=== PATIENT | male | born 1950 | race Caucasian/White ===

== ENCOUNTER 2017-02-14 07:14 | Emergency (ER) | payer MEDICARE ==
[2017-02-14 07:46] LABS: BASOPHILS 0.1 % (0.0-2.0); HEMATOCRIT 42.4 % (42.0-54.0); LYMPHOCYTES 3.5 % (20.0-40.0); LYMPHOCYTES# 0.3 X 10^3uL (0.8-3.8); MEAN CELL VOLUME 97.1 fL (80.0-100.0); MEAN CORPUS. HGB CONCENTRATION 35.4 g/dL (32.0-36.0); MEAN CORPUSCULAR HEMOGLOBIN 34.4 pg (29.0-35.0); MEAN PLATELET VOLUME 6.8 fL (7.4-10.4); MONOCYTES 3.5 % (2.0-10.0); MONOCYTES# 0.3 X 10^3uL (0.2-1.0); NEUTROPHILS# 9.3 X 10^3uL (2.6-6.7); RED BLOOD COUNT 4.37 X 10^6uL (4.20-6.10); RED CELL DISTRIBUTION WIDTH 12.7 % (11.5-14.5); WHITE BLOOD COUNT 9.9 X 10^3uL (3.9-10.7)
[2017-02-14] MEDS ORDERED: ACETAMINOPHEN 325 MG TABLET PO ONE (07:58)
[2017-02-14] MEDS ORDERED: LEVOFLOXACIN/D5W 150 ML IV ONE (08:04)
[2017-02-14] MEDS ORDERED: PIPERACILLIN /TAZO 4.5 GM/10 ML VIAL IV ONE (08:05)
[2017-02-14] MEDS ORDERED: NORMAL SALINE MINI-BAG+ 100 ML IV ONE (08:05)
[2017-02-14 08:12] LABS: ALBUMIN 3.7 g/dL (3.5-5.0); CALCIUM 9.1 mg/dL (8.4-10.2); CREATININE 1.5 mg/dL (0.7-1.3); NEUTROPHILS 92.9 % (54.0-75.0); POTASSIUM 3.4 mmol/L (3.5-5.1); TOTAL PROTEIN 7.4 g/dL (6.3-8.2)
[2017-02-14 08:18] LABS: ARTERIAL BLOOD GAS HCO3 13.5 mmol/L (22-26); ARTERIAL BLOOD GAS PCO2 25.3 mmHg (35-45)
[2017-02-14] MEDS ORDERED: KETAMINE HCL 500 MG/10 ML VIAL ONE (08:51)
[2017-02-14] MEDS ORDERED: FENTANYL 100 MCG/2 ML VIAL ONE (09:08)
--- NOTE | 2017-02-14 09:12 | RADIOLOGY REPORT ---
HISTORY: Difficulty breathing. COMPARISON: None. TECHNIQUE: Portable AP chest. FINDINGS: There is consolidation in the right lower lung. There may be a small right pleural effusion. Left jahaira g clear. No evidence of pneumothoraces. Cardiac silhouette within normal limits. Mild atherosclerosi s aortic arch. Spondylosis lower thoracic spine. IMPRESSION: 1. Consolidation right lower lung compatible with pneumonia. Recommend 6 week follow-up to document resolution. 2. Possible small right pleural effusion. Final Electronic Signature: This report was electronically signed by Jesús Glass MD on 02/14/2017 9: 10 AM. adis /
[2017-02-14 09:24] LABS: ARTERIAL BLOOD GAS HCO3 19.9 mmol/L (22-26); ARTERIAL BLOOD GAS PCO2 59.3 mmHg (35-45)
--- NOTE | 2017-02-14 09:32 | ER NURSING DOCUMENTATION ---
Nurse's Notes [facility] Name:Jesús Nunez Age:66 yrs Sex:Male :1950 Arrival Date:02/14/2017 Time:07:14 BedTrauma-A Private MD:Marquis Horton Diagnosis:Respiratory Failure;Sepsis;Hypoxia;Pneumonia Bacterial Presentation: 02/14 07:14 Presenting complaint: Patient states: SOB, flu positive. Pale, diaphoretic, labored tg breathing, denies chest pain except with cough. Transition of care: patient was not received from another setting of care. 07:14 Method Of Arrival: Private Vehicle tg 07:36 Acuity: KRISTINE 1 tg Triage Assessment: 07:20 General: Appears ill, Behavior is anxious, cooperative. Pain: Denies pain. Neuro: Level tg of Consciousness is awake, alert. Cardiovascular: Heart tones S1 S2 present Reports Diaphoresis fatigue, shortness of breath Denies syncope, Rhythm is sinus tachycardia. Respiratory: Airway is patent Respiratory effort is labored, Respiratory pattern is tachypnea Breath sounds are coarse Reports shortness of breath cough that is labored breathing pain with cough Onset: The symptoms/episode began/occurred gradually, the patient has severe shortness of breath. Derm: Skin is diaphoretic, Skin is pale. Historical: - Allergies: No known drug Allergies; - Tetanus: unknown. - Ebola Screening: : Patient negative for fever greater than or equal to 101.5 degrees Fahrenheit, and additional compatible Ebola Virus Disease symptoms. Patient denies exposure to infectious person. Patient denies travel to an Ebola-affected area in the 21 days before illness onset. No symptoms or risks identified at this time. . - Social history: Smoking status: Patient states was never smoker of tobacco. - Immunization history: Pneumococcal vaccine status is unknown, Flu Vaccine < 1 year. Screenin:41 Infectious Disease Risk Unable to Obtain. Abuse screen: Denies threats or abuse. Denies tg injuries from another. Nutritional screening: No deficits noted. Assessment: 09:00 Reassessment: [employer] flight team in the room, transfering patient onto their tg monitoring equipment, asssuming patient care. . 09:00 Reassessment: Pt intubated and on EMS ventilator. Equal chest rise, breath sounds tg bilat. Pt is sedated and calm. . Vital Signs: 07:15 BP 160 / 99 (auto/); Pulse 188; Resp 50; Temp 99.3(O); Pulse Ox 82% on R/A; Weight tg 83.91 kg (R); Height 5 ft. 11 in. (180.34 cm) (R); Pain 2/10; 07:19 Pulse 160 MON; Resp 32; Pulse Ox 89% ; tg 08:31 BP 134 / 84 (auto/); tg 08:37 Pulse 170 MON; Resp 36; Pulse Ox 97% ; tg 08:45 BP 130 / 73 (auto/); tg 08:47 Pulse 138 MON; Resp 24; Pulse Ox 97% ; tg 08:52 BP 199 / 115 (auto/); tg 08:56 BP 184 / 97 (auto/); tg 08:57 Pulse 147 MON; Resp 23; Pulse Ox 94% ; tg 09:00 BP 166 / 89 (auto/); tg 09:02 Pulse 171 MON; Resp 22; Pulse Ox 91% ; tg 07:15 Body Mass Index 25.80 (83.91 kg, 180.34 cm) ED Course: 07:20 Notified ED Physician of patient's arrival and chief complaint. Dr. Villa notified. Arm tg band placed on. 07:20 engineering psychologist on. Pulse ox on. NIBP On - RN Monitoring Only. tg 07:25 EKG done. (by ED staff). Reviewed by Marco Villa MD. Oxygen Oxygen administration via tg nasal cannula @ 5L/min. 07:27 Patient arrived in ED. arc 07:27 Marquis Horton DO is Private Physician. arc 07:35 Marco Villa MD is Attending Physician. jm 07:36 Triage completed. tg 07:37 Port Xray Completed. pm1 07:39 Sanjeev Carlson, RN is Primary Nurse. tg 07:41 Inserted peripheral IV: 20 gauge in left forearm. tg 08:18 Inserted peripheral IV: 22 gauge in right hand Multiple missed IV attempts by EMS. tg 08:46 Valuables Remains with patient. tg 08:49 Assist Provider Assist provider with intubation with 8.0 mm ETT. via oral route. Set up intubation tray. Intubated by Marco Villa MD Placement verified by CXR, CO2 detector w/ + color change, auscultating bilateral breath sounds, Patient tolerated well. Mijares cath inserted 16 Fr. Balloon inflated. To gravity drainage. Urine specimen collected. 09:02 CHEST; SINGLE VIEW [address]27 In Process Unspecified. EDMS 16:29 EKG attached tg Administered Medications: 07:40 Drug: NS 0.9% 2000 ml; Route: IV; Rate: bolus; Site: left forearm; Delivery: [place] tg Tubing; 09:17 Follow up: IV Status: Completed infusion; IV Intake: 2000ml tg 07:59 Drug: Zosyn - (NS 0.9% 100 ml, Piperacillin-Tazobactam 4.5 grams); Route: IVPB; Infused tg Over: 30 mins; Site: left forearm; Delivery: Pump; 08:34 Follow up: IV Status: Completed infusion; IV Intake: 100ml tg 08:30 Drug: levofloxacin 750 mg; Route: IVPB; Site: left forearm; tg 09:52 Follow up: IV Status: Infusing continued upon transfer; IV Intake: 50ml tg 08:46 Drug: Ketamine 80 mg; Route: IVP; Site: right hand; tg 09:00 Follow up: Response: sedated tg 08:47 Drug: Succinylcholine (PEDS) 120 mg; Route: IVP; Site: right hand; tg 09:00 Follow up: Response: sedated tg 08:51 Drug: Vecuronium 8 mg; Route: IVP; Site: right hand; tg 09:00 Follow up: Response: sedated tg 08:52 Drug: Versed 3 mg; Route: IVP; Site: right hand; tg 09:00 Follow up: Response: sedated tg 08:56 Drug: fentaNYL (PF) 100 mcg; Route: IVP; Infused Over: 3 mins; Site: right hand; tg 09:00 Follow up: Response: sedated tg 09:18 CANCELLED (Physician Discretion): Acetaminophen 975 mg PO once tg Intake: 08:34 IV: 100ml; Total: 100ml. tg 09:17 IV: 2000ml; Total: 2100ml. tg 09:52 IV: 50ml; Total: 2150ml. tg Output: 09:00 Urine: 100ml (Mijares); Total: 100ml. tg Ventilator: 08:52 Fi02: 100%; Rate: 16min; T.V.: 480ml; Peep: 5cm; ET tube: 8 fr (Oral); tg 08:52 Fi02: 852%; tg 08:52 ET tube 22cm at the lip per EMS tg Outcome: 09:10 ER care complete, transfer ordered by MD. leal 09:29 Transferred: Patient will be transferred to: [facility]. Facility tg Acceptance Time: February 14, 2017 at 09:00 Patient's face sheet was faxed to accepting facility. Face Sheet included patient's name, address, age, gender, contact information and insurance information. Patient will be transported by: [employer]. Report called to: sloan Morley RN at [facility] Nurse and Physician Charting and Notes were sent to Accepting Facility. All tests and/or procedures with results, if applicable, were sent to accepting facility. 09:29 critical 09:29 Discharge Assessment: Patient Intubated, sedated. :29 Instructed on need for transfer :29 Critical Care visit due to Resp compromise and subsequent intubation. 09:31 Patient left the ED. tg Signatures: Dispatcher [employer] Sanjeev Ceja RN RN tg Marco Villa MD MD jm McBride, Philisha pm1 Sybil Angulo, Reg Reg arc
--- NOTE | 2017-02-14 09:32 | ER PHYSICIAN DOCUMENTATION ---
Physician Documentation [facility] Name:Jesús Nunez Age:66 yrs Sex:Male :1950 Arrival Date:02/14/2017 Time:07:14 BedTrauma-A Private MD:Marquis Horton ED, John Disposition: 02/14/17 09:10 Transfer ordered to [facility]. Diagnosis are Respiratory Failure, Sepsis, Hypoxia, Pneumonia Bacterial. - Reason for transfer: Higher level of care. - Accepting physician is Dr. Moran. - Condition is Serious. - Problem is new. - Symptoms are unchanged. COBRA Form completed? Yes Transfer - Mode of Transportation Helicopter HPI: 02/14 08:11 This 66 yrs old Male presents to ER with complaints of Breathing Difficulty. jm 08:11 The patient has shortness of breath at rest. Onset: The symptom(s)/episode jm began/occurred yesterday, and became worse today. Duration: The symptoms are continuous. The patient's shortness of breath is aggravated by nothing. Associated signs and symptoms: Pertinent positives: productive cough, diaphoresis, fever. Severity of symptoms: in the emergency department the symptoms are worse. The patient has not experienced similar symptoms in the past. The patient has been recently seen at an urgent care, last week, dx w influenza B. Pt here for SOB, and diaphoresis. . Historical: - Allergies: No known drug Allergies; - Tetanus: unknown. - Ebola Screening: : Patient negative for fever greater than or equal to 101.5 degrees Fahrenheit, and additional compatible Ebola Virus Disease symptoms. Patient denies exposure to infectious person. Patient denies travel to an Ebola-affected area in the 21 days before illness onset. No symptoms or risks identified at this time. . - Social history: Smoking status: Patient states was never smoker of tobacco. - Immunization history: Pneumococcal vaccine status is unknown, Flu Vaccine < 1 year. ROS: 08:12 Constitutional: Positive for body aches, chills, fatigue, fever, malaise. jm 08:12 Eyes: Negative for pain, photophobia. 08:12 ENT: Negative for rhinorrhea, sinus congestion, sinus pain, sore throat. 08:12 Cardiovascular: Negative for chest pain, edema. 08:12 Respiratory: Positive for cough, dyspnea on exertion, shortness of breath. 08:12 Abdomen/GI: Negative for abdominal pain, nausea, vomiting, diarrhea. 08:12 : Negative for urinary symptoms. 08:12 MS/extremity: Negative for rash, tenderness. 08:12 Skin: Positive for diaphoresis. 08:12 Neuro: Positive for weakness, Negative for dizziness. 08:12 All other systems are negative. Exam: 08:14 Constitutional: The patient appears alert, awake, anxious, diaphoretic, in obvious jm distress, moderately distressed. 08:14 Eyes: Periorbital structures: appear normal, Conjunctiva: normal. 08:14 ENT: Mouth: is normal, Voice: is hoarse. 08:14 Cardiovascular: Rate: tachycardic, Rhythm: regular. 08:14 Respiratory: moderate respiratory distress is noted, Respirations: accessory muscle usage, tachypnea, Breath sounds: rhonchi, that are severe, are heard in the right posterior middle lobe and right posterior lower lobe, decreased breath sounds. 08:14 Abdomen/GI: Bowel sounds: normal, Palpation: abdomen is soft and non-tender. 08:14 Musculoskeletal/extremity: Extremities: all appear grossly normal, with no appreciated pain with palpation, ROM: intact in all extremities. 08:14 Skin: Appearance: Color: pink, no rash present. 08:14 Skin: Appearance: diaphoresis is noted. 08:14 Neuro: Mentation: is normal, Memory: is normal. 08:14 Psych: Behavior/mood is pleasant, cooperative, Affect is calm. Vital Signs: 07:15 BP 160 / 99 (auto/); Pulse 188; Resp 50; Temp 99.3(O); Pulse Ox 82% on R/A; Weight tg 83.91 kg (R); Height 5 ft. 11 in. (180.34 cm) (R); Pain 2/10; 07:19 Pulse 160 MON; Resp 32; Pulse Ox 89% ; tg 08:31 BP 134 / 84 (auto/); tg 08:37 Pulse 170 MON; Resp 36; Pulse Ox 97% ; tg 08:45 BP 130 / 73 (auto/); tg 08:47 Pulse 138 MON; Resp 24; Pulse Ox 97% ; tg 08:52 BP 199 / 115 (auto/); tg 08:56 BP 184 / 97 (auto/); tg 08:57 Pulse 147 MON; Resp 23; Pulse Ox 94% ; tg 09:00 BP 166 / 89 (auto/); tg 09:02 Pulse 171 MON; Resp 22; Pulse Ox 91% ; tg 07:15 Body Mass Index 25.80 (83.91 kg, 180.34 cm) tg Ventilator: 08:52 Fi02: 100%; Rate: 16min; T.V.: 480ml; Peep: 5cm; ET tube: 8 fr (Oral); tg 08:52 Fi02: 852%; tg 08:52 ET tube 22cm at the lip per EMS tg Procedures: 08:53 Intubation: Ventilated with 100% NRB prior to procedure. O2 saturation prior to jm procedure was 95 %. Intubated orally using glidescope with 8.0 mm ETT. was successful on first attempt. Ventilated with ventilator. Cricoid pressure applied during procedure. Tube secured with ETT reich Placement verified by CXR, Patient tolerated well. MDM: 07:35 Patient medically screened. 08:54 Differential diagnosis: pneumonia, Sepsis. Antibiotic administration: Levaquin and jm zosyn . Data reviewed: vital signs, nurses notes, old medical records, lab test result(s), EKG, radiologic studies, and as a result, I will *Transfer Patient. Test interpretation: by ED physician or midlevel provider: plain radiologic studies, ECG. Counseling: I had a detailed discussion with the patient and/or guardian regarding: the historical points, exam findings, and any diagnostic results supporting the discharge/admit diagnosis, lab results, radiology results, the need to transfer to another facility. ECG:. ED course: Pt breathing too fast, c/o of tiring out. CXR shows large R sided PNA. Pt agreed to be intuabted. Tis was done w/o issues. Abx hung w/i 1st hour. Lactate elevated at 3.75. Pt will be flown to [facility]. . 09:08 Physician consultation: Dr. Moran was called at 08:40, was contacted at 08:50. elvis 16:29 EKG attached 02/14 08:12 Order name: CBC AUTO DIF, MDIF/RMOR IF IND; Complete Time: 08:18 EDMS 02/14 08:16 Order name: LACTATE; Complete Time: 08:16 EDMS 02/14 08:16 Interpretation: Abnormal. elvis 02/14 08:16 Order name: BASIC METABOLIC PANEL; Complete Time: 08:18 EDMS 02/14 08:16 Order name: HEPATIC PANEL; Complete Time: 08:18 EDMS 02/14 08:16 Order name: LIPASE; Complete Time: 08:18 EDMS 02/14 08:19 Order name: ARTERIAL BLOOD GAS; Complete Time: 08:20 EDMS 02/14 09:27 Order name: ARTERIAL BLOOD GAS EDMS 02/14 10:39 Order name: SPUTUM CULTURE AND GRAM STAIN EDMS 02/14 11:30 Order name: UA W/ MICRO -CULTURE IF IND EDMS 02/15 08:36 Order name: URINE CULTURE EDMS 02/15 08:52 Order name: BLOOD CULTURE EDMS 02/15 08:52 Order name: BLOOD CULTURE EDMS 02/14 09:02 Order name: CHEST; SINGLE VIEW [id number] EDMS 02/14 09:13 Order name: CHEST; SING[place]IEW [id number] EDMS 02/14 07:35 Order name: I & O; Complete Time: 07:40 tg 02/14 07:35 Order name: IV large bore X 2; Complete Time: 09:13 tg 02/14 07:35 Order name: NPO; Complete Time: 07:40 tg 02/14 07:35 Order name: Oxygen; Complete Time: 07:40 tg 02/14 07:35 Order name: Place Patient On Monitor; Complete Time: 07:40 tg 02/14 07:35 Order name: Pulse Ox Continuous; Complete Time: 07:40 tg 02/14 09:14 Order name: Mijares; Complete Time: 09:14 tg EC:54 Rate is 166 beats/min. QRS interval is normal. QT interval is normal. No Q waves. T jm waves are Normal. No ST changes noted. Dispensed Medications: 07:40 Drug: NS 0.9% 2000 ml; Route: IV; Rate: bolus; Site: left forearm; Delivery: [place] tg Tubing; 09:17 Follow up: IV Status: Completed infusion; IV Intake: 2000ml tg 07:59 Drug: Zosyn - (NS 0.9% 100 ml, Piperacillin-Tazobactam 4.5 grams); Route: IVPB; Infused tg Over: 30 mins; Site: left forearm; Delivery: Pump; 08:34 Follow up: IV Status: Completed infusion; IV Intake: 100ml tg 08:30 Drug: levofloxacin 750 mg; Route: IVPB; Site: left forearm; tg 09:52 Follow up: IV Status: Infusing continued upon transfer; IV Intake: 50ml tg 08:46 Drug: Ketamine 80 mg; Route: IVP; Site: right hand; tg 09:00 Follow up: Response: sedated tg 08:47 Drug: Succinylcholine (PEDS) 120 mg; Route: IVP; Site: right hand; tg 09:00 Follow up: Response: sedated tg 08:51 Drug: Vecuronium 8 mg; Route: IVP; Site: right hand; tg 09:00 Follow up: Response: sedated tg 08:52 Drug: Versed 3 mg; Route: IVP; Site: right hand; tg 09:00 Follow up: Response: sedated tg 08:56 Drug: fentaNYL (PF) 100 mcg; Route: IVP; Infused Over: 3 mins; Site: right hand; tg 09:00 Follow up: Response: sedated tg 09:18 CANCELLED (Physician Discretion): Acetaminophen 975 mg PO once tg Signatures: Sanjeev Carlson RN RN tg Marco Villa MD MD
--- NOTE | 2017-02-14 09:34 | RADIOLOGY REPORT ---
HISTORY: Difficulty breathing. Status post intubation. COMPARISON: Examination obtained earlier today at 0736 hours. TECHNIQUE: Portable AP chest. FINDINGS: There is a new endotracheal tube with tip above thoracic inlet. Recommend advancing at least 5 cm.. T here is decreased inflation of the lungs. Probably no other change except for patient positioning and technical differences. Opacity right lung due to atelectasis, infiltrate, and/or posteriorly layerin g effusion. Left lung clear. Cardiac silhouette within normal limits for AP projection. Mild atheros clerosis aortic arch. Spondylosis thoracic spine. IMPRESSION: 1. New endotracheal tube with tip above thoracic inlet. Recommend advancing at least 5 cm. 2. Stable opacity right lower lung due to atelectasis, infiltrate, and/or posteriorly layering effus ion. Final Electronic Signature: This report was electronically signed by Jesús Glass MD on 02/14/2017 9: 31 AM. adis /
[2017-02-14] MEDS ORDERED: WATER FOR INJECTION 10 ML ONE (10:20)
[2017-02-14] MEDS ORDERED: VECURONIUM BROMIDE 20 MG/20 ML VIAL IV ONE (10:20)
[2017-02-14] MEDS ORDERED: MIDAZOLAM HCL 2 MG/2 ML VIAL ONE (10:20)
[2017-02-14] MEDS ORDERED: SUCCINYLCHOLINE CHLORIDE 200 MG/10 ML VIAL ONE (10:21)
[2017-02-14] MEDS ORDERED: IPRATROPIUM/ALBUTEROL 0.5/3 MG 3 ML AMPUL.NEB INHALATION ONE (10:22)
[2017-02-14 11:02] LABS: URINE MUCUS NONE SEEN (Up to 25%); URINE SQUAMOUS EPITHELIAL CELL NONE SEEN (<= 15/hpf)
[2017-02-14 11:27] LABS: URINE APPEARANCE SLIGHTLY CLOUDY; URINE BILIRUBIN 0.5 mg/100ml (1+) (NEGATIVE); URINE BLOOD 50 Ery/uL (2+) (NEGATIVE); URINE COLOR YELLOW; URINE GLUCOSE NORMAL (NEGATIVE); URINE KETONE 50mg/dL (2+) (NEGATIVE); URINE LEUKOCYTE ESTERASE NEGATIVE (NEGATIVE); URINE NITRITE NEGATIVE (NEGATIVE); URINE PH 5.5 (5-7); URINE PROTEIN 100mg/dL (2+) (NEG - TRACE); URINE SPECIFIC GRAVITY 1.025 (0.001-1.035); URINE UROBILINOGEN 2mg/dL (NEG-1mg/dL); URINE WBC 0-4/hpf (0-4/hpf)
[2017-02-14 11:29] LABS: URINE BACTERIA <10 ORGANISMS/hpf (<10/hpf)
== END 2017-02-14 09:32 | disposition short-term general hospital (02) ==
LOC: ER 07:14
DX: J96.90 Respiratory failure, unspecified, unspecified whether with hypoxia or hypercapnia (principal); R09.02 Hypoxemia; J15.9 Unspecified bacterial pneumonia; A41.9 Sepsis, unspecified organism; R61 Generalized hyperhidrosis; R53.1 Weakness
CPT/HCPCS: 31500; 51702; 71010; 80048; 80076; 81001; 82803; 83605; 83690; 85025; 87040; 87070; 87086; 87205; 93005; 96365; 96367; 96368; 96375; 99285; J1956; J2250; J2543; J7620